=== PATIENT | female | born 1970 | race Caucasian/White ===

== ENCOUNTER 2018-11-06 11:46 | Inpatient (IN) | payer OTHER ==
[~2018-11-06] VITALS: Ht 167.6 cm; Wt 72.0 kg
[2018-11-06] MEDS ORDERED: normal saline 1000ML IV soln IV ONE (12:05)
[2018-11-06 12:38] LABS: BASOPHILS # (AUTO) 0.1 X10'3 (0-0.2); BASOPHILS % (AUTO) 1.9 % (0-1); EOSINOPHILS # (AUTO) 0.1 X10'3 (0-0.9); EOSINOPHILS % (AUTO) 2.8 % (0-6); HEMATOCRIT 26.2 % (35.0-45.0); HEMOGLOBIN 7.5 g/dl (12.0-16.0); LYMPHOCYTES # (AUTO) 0.9 X10'3 (1.1-4.8); LYMPHOCYTES % (AUTO) 16.2 % (21-51); MEAN CORPUSCULAR HEMOGLOBIN 21.5 PG (27.0-31.0); MEAN CORPUSCULAR HGB CONC 28.7 g/dL (33.0-36.5); MEAN CORPUSCULAR VOLUME 74.8 FL (78-98); MEAN PLATELET VOLUME 7.5 FL (7.4-10.4); MONOCYTES # (AUTO) 0.4 X10'3 (0-0.9); MONOCYTES % (AUTO) 6.9 % (2-12); NEUTROPHILS # (AUTO) 3.8 X10'3 (1.8-7.7); NEUTROPHILS % (AUTO) 72.2 % (42-75); PLATELET COUNT 359 X10'3 (140-440); RED CELL DISTRIBUTION WIDTH 22.6 % (11.5-14.5); WHITE BLOOD COUNT 5.3 X10'3 (4.5-11.0)
[2018-11-06 12:47] LABS: ALANINE AMINOTRANSFERASE 64 U/L (12-78); ALBUMIN 3.5 G/DL (3.4-5.0); ALBUMIN/GLOBULIN RATIO 0.7 (1.1-1.5); ALKALINE PHOSPHATASE 137 IU/L (46-116); ANION GAP 17 (8-16); ASPARTATE AMINO TRANSFERASE 100 U/L (10-37); BLOOD UREA NITROGEN 8 MG/DL (7-18); BUN/CREATININE RATIO 6.7 (6.6-38.0); CALCIUM 9.2 MG/DL (8.5-10.1); CHLORIDE 98 MMOL/L (99-107); GLUCOSE 117 MG/DL (70-104); POTASSIUM 3.3 MMOL/L (3.5-5.1); SODIUM 137 MMOL/L (135-145); TOTAL CARBON DIOXIDE 22.2 MMOL/L (24-32); TOTAL PROTEIN 8.7 G/DL (6.4-8.2); eGFR 48 ML/MIN
[2018-11-06 12:53] LABS: HYPOCHROMASIA 2+; PLATELET ESTIMATE NORMAL
[2018-11-06 12:54] LABS: ANISOCYTOSIS 3+; MICROCYTOSIS 1+; STOMATOCYTES 1+
[2018-11-06] MEDS ORDERED: ondansetron/PF 4mg/2ml inj IV ONE (13:00)
[2018-11-06] MEDS ORDERED: pantoprazole 40 MG vial IV ONE (13:00)
[2018-11-06] MEDS ORDERED: magnesium Cl slow-release 64mg tablet PO PRN (13:15)
[2018-11-06] MEDS ORDERED: potassium Cl 10 mEq/100mL bag IV ONE (13:15)
[2018-11-06] MEDS ORDERED: potassium Cl 40MEQ/NS 500ml 500 ML IV PRN (13:15)
[2018-11-06] MEDS ORDERED: potassium Cl 20 mEq SR tablet PO PRN ×2 (13:15)
[2018-11-06] MEDS ORDERED: magnesium 4gm in 100ml NS 100 ML IV PRN (13:15)
[2018-11-06] MEDS ORDERED: acetaminophen 325mg tablet PO PRN ×2 (13:15)
[2018-11-06] MEDS ORDERED: ondansetron/PF 4mg/2ml inj IV PRN (13:15)
[2018-11-06] MEDS ORDERED: mag hydrox/Alum hydrox/simeth 30ml oral suspension PO PRN (13:15)
[2018-11-06] MEDS ORDERED: magnesium hydroxide 30ml (MOM) UD suspension PO PRN (13:15)
[2018-11-06] MEDS ORDERED: magnesium 2GM in 50ml NS 50 ML IV PRN (13:15)
[2018-11-06] MEDS ORDERED: MVI, adult No.4 with vit. K 10 ML in dextrose 5% water 500ml 500 ML IV SCH ×2 (13:20)
[2018-11-06] MEDS ORDERED: LORazepam 1 MG tablet PO PRN (13:20)
[2018-11-06] MEDS ORDERED: LORazepam 2 mg/ml vial IV PRN (13:20)
[2018-11-06] MEDS ORDERED: NO HOME MEDS (13:31)
[2018-11-06] MEDS ORDERED: thiamine inj. 100 MG, folic acid inj. 2 MG in normal saline 100ml IV soln 100 ML IV SCH (13:35)
[2018-11-06] MEDS: normal saline 1000ml 1,000 ML IV SCH ×2 (13:44→23:12)
[2018-11-06] MEDS ORDERED: ESOMEPRAZOLE 40 MG VIAL IV ONE (13:45)
--- NOTE | 2018-11-06 14:30 | NUR ---
Received report from ER nurse Kaylie MITCHELL. Awaiting arrival to room 359B.
[2018-11-06 14:46] VITALS: BP 140/58
[2018-11-06 16:36] LABS: COLOR,URINE YELLOW (Yellow); GLUCOSE, URINE NEGATIVE (Neg); KETONES,URINE NEGATIVE (Neg); LEUKOCYTE ESTERASE ,URINE SMALL (Neg); NITRITES, URINE POSITIVE (Neg); OCCULT BLOOD,URINE NEGATIVE (Neg); PH,URINE 5.5 (4.8-8.0); PROTEIN,URINE NEGATIVE (Neg); UROBILINOGEN,URINE 0.2 E.U/dL (0.2-1.0)
[2018-11-06 16:47] LABS: CLARITY,URINE SLIGHTLY CLOUDY (Clear); UA COLLECTION TYPE CLN CATCH MIDSTREAM
[2018-11-06 16:52] LABS: BACTERIA,URINE 4+ /HPF (Neg); MUCUS STRANDS FEW /LPF (Neg); RBC,URINE NONE SEEN /HPF (0-2); SQUAMOUS EPITHELIAL CELL,UR FEW /LPF (FEW)
[2018-11-06 18:30] LABS: URINE AMPHETAMINE SCREEN POSITIVE (Neg); URINE BARBITUATE SCREEN NEGATIVE (Neg); URINE BENZODIAZEPINES SCREEN NEGATIVE (Neg); URINE CANNABINOID SCREEN NEGATIVE (Neg); URINE COCAINE SCREEN NEGATIVE (Neg); URINE METHADONE SCREEN NEGATIVE (Neg); URINE OPIATE SCREEN NEGATIVE (Neg); URINE PHENCYCLIDINE SCREEN NEGATIVE (Neg)
--- NOTE | 2018-11-06 18:32 | NUR ---
Problems reprioritized. Patient report given, questions answered & plan of care reviewed with Lisa MITCHELL.
--- NOTE | 2018-11-06 19:01 | NUR ---
Stool sample collected and sent to laboratory.
[2018-11-06 19:32] LABS: HEMATOCRIT 23.6 % (35.0-45.0); MEAN CORPUSCULAR HEMOGLOBIN 21.5 PG (27.0-31.0); MEAN CORPUSCULAR HGB CONC 28.7 g/dL (33.0-36.5); MEAN CORPUSCULAR VOLUME 74.8 FL (78-98); MEAN PLATELET VOLUME 7.7 FL (7.4-10.4); PLATELET COUNT 309 X10'3 (140-440); RED BLOOD COUNT 3.15 X10'6 (4.20-5.60); RED CELL DISTRIBUTION WIDTH 22.9 % (11.5-14.5); WHITE BLOOD COUNT 7.1 X10'3 (4.5-11.0)
[2018-11-06 19:37] LABS: HEMOGLOBIN 6.8 g/dl (12.0-16.0)
--- NOTE | 2018-11-06 19:50 | NUR ---
Critical hemoglobin of 6.8. Dr. Stone notified and made aware. No additional orders Patient is already type and screen.
[2018-11-06 19:55] LABS: % IRON SATURATION 4 % (11-46); IRON 15 UG/DL (49-151); TOTAL IRON BINDING CAPACITY 396 UG/DL (259-388)
[2018-11-06 20:00] VITALS: BP 143/87
[2018-11-06] MEDS: CefTRIAXone 2gm/D5W 50ml 50 ML IV SCH (20:09)
[2018-11-06] MEDS: lactobacillus rhamnosus 10,000 MMU CELLS/CAPSULE PO SCH (20:09)
[2018-11-06] MEDS: potassium CL 10mEq/100ml bag 100 ML IV PRN ×2 (21:38→22:53)
[2018-11-06 22:37] LABS: OCCULT BLOOD STOOL NEGATIVE (Neg)
[2018-11-07] VITALS (9 sets, daily range): BP systolic 121–158; BP diastolic 65–97
--- NOTE | 2018-11-07 00:12 | NUR ---
Dr. Stone notified of patient's low Iron studies. No additional orders. Updated patient's status to md. Patient is asympatomatic, VSS. No bleeding noted. Will continue with care.
[2018-11-07] MEDS: potassium CL 10mEq/100ml bag 100 ML IV PRN (00:43)
--- NOTE | 2018-11-07 05:17 | NUR ---
Dr. Stone in to see patient. Risks and Benefits explained to patient. Patient consented to receiving blood. MD order 1unit to be transfuse.
--- NOTE | 2018-11-07 05:45 | NUR ---
BLOOD TRANSFUSION STARTED. SYMPTOMS OF TRANSFUSION REACTIONS EXPLAINED TO PATIENT. LUNG SOUNDS CLEAR. VSS.
--- NOTE | 2018-11-07 06:30 | NUR ---
Patient in room [facility]. I have received report from Lisa MITCHELL and had the opportunity to ask questions and assume patient care.
[2018-11-07 06:31] LABS: BASOPHILS # (AUTO) 0.1 X10'3 (0-0.2); BASOPHILS % (AUTO) 1.5 % (0-1); EOSINOPHILS # (AUTO) 0.2 X10'3 (0-0.9); EOSINOPHILS % (AUTO) 3.4 % (0-6); LYMPHOCYTES # (AUTO) 1.3 X10'3 (1.1-4.8); LYMPHOCYTES % (AUTO) 21.5 % (21-51); MEAN CORPUSCULAR HEMOGLOBIN 21.5 PG (27.0-31.0); MEAN CORPUSCULAR HGB CONC 29.2 g/dL (33.0-36.5); MEAN CORPUSCULAR VOLUME 73.8 FL (78-98); MEAN PLATELET VOLUME 7.6 FL (7.4-10.4); MONOCYTES # (AUTO) 0.6 X10'3 (0-0.9); MONOCYTES % (AUTO) 9.9 % (2-12); NEUTROPHILS # (AUTO) 3.9 X10'3 (1.8-7.7); NEUTROPHILS % (AUTO) 63.7 % (42-75); PLATELET COUNT 286 X10'3 (140-440); RED CELL DISTRIBUTION WIDTH 22.7 % (11.5-14.5); WHITE BLOOD COUNT 6.1 X10'3 (4.5-11.0)
[2018-11-07 06:39] LABS: ANION GAP 10 (8-16); BLOOD UREA NITROGEN 6 MG/DL (7-18); CALCIUM 8.1 MG/DL (8.5-10.1); CHLORIDE 103 MMOL/L (99-107); GLUCOSE 84 MG/DL (70-104); POTASSIUM 3.6 MMOL/L (3.5-5.1); SODIUM 138 MMOL/L (135-145); TOTAL CARBON DIOXIDE 24.8 MMOL/L (24-32); eGFR > 90 ML/MIN
[2018-11-07 06:40] LABS: ALBUMIN 2.6 G/DL (3.4-5.0); MAGNESIUM 1.5 MG/DL (1.5-2.4)
[2018-11-07 06:41] LABS: HEMATOCRIT 20.6 % (35.0-45.0)
[2018-11-07 07:48] LABS: ANISOCYTOSIS 3+; LARGE PLATELETS FEW; MICROCYTOSIS 1+; PLATELET ESTIMATE NORMAL
[2018-11-07 07:49] LABS: HYPOCHROMASIA 2+; POLYCHROMASIA 1+
[2018-11-07] MEDS: K and/or MAG REPLACEMENT MC SCH (08:00)
[2018-11-07] MEDS: lactobacillus rhamnosus 10,000 MMU CELLS/CAPSULE PO SCH ×2 (08:19→19:33)
[2018-11-07] MEDS: CefTRIAXone 2gm/D5W 50ml 50 ML IV SCH (08:19)
[2018-11-07] MEDS: thiamine 100mg tablet PO SCH (08:19)
[2018-11-07] MEDS: pantoprazole 40mg Tablet.DR PO SCH (08:19)
[2018-11-07] MEDS: multivitamins, therapeutics tablet PO SCH (08:20)
[2018-11-07] MEDS: folic acid 1mg tablet PO SCH (08:20)
[2018-11-07] MEDS: normal saline 1000ml 1,000 ML IV SCH (09:19)
[2018-11-07 12:16] LABS: HEMATOCRIT 25.5 % (35.0-45.0); HEMOGLOBIN 7.7 g/dl (12.0-16.0); MEAN CORPUSCULAR HGB CONC 30.1 g/dL (33.0-36.5); MEAN CORPUSCULAR VOLUME 76.4 FL (78-98); MEAN PLATELET VOLUME 7.9 FL (7.4-10.4); PLATELET COUNT 288 X10'3 (140-440); RED BLOOD COUNT 3.34 X10'6 (4.20-5.60); RED CELL DISTRIBUTION WIDTH 21.5 % (11.5-14.5); WHITE BLOOD COUNT 5.9 X10'3 (4.5-11.0)
--- NOTE | 2018-11-07 12:54 | NUR ---
informed of H&H 7.11/23.. No new orders at this time.
[2018-11-07] MEDS: sodium ferric gluc complex inj 125 MG in normal saline 100ml IV soln 100 ML IV SCH (18:08)
--- NOTE | 2018-11-07 18:15 | NUR ---
Problems reprioritized. Patient report given, questions answered & plan of care reviewed with Deneen Winn RN.
[2018-11-08] VITALS: BP 137/75
[2018-11-08 05:03] LABS: BASOPHILS # (AUTO) 0.1 X10'3 (0-0.2); EOSINOPHILS # (AUTO) 0.2 X10'3 (0-0.9); EOSINOPHILS % (AUTO) 2.7 % (0-6); HEMATOCRIT 25.4 % (35.0-45.0); HEMOGLOBIN 7.6 g/dl (12.0-16.0); LYMPHOCYTES # (AUTO) 1.1 X10'3 (1.1-4.8); MEAN CORPUSCULAR HEMOGLOBIN 22.5 PG (27.0-31.0); MEAN CORPUSCULAR HGB CONC 29.8 g/dL (33.0-36.5); MEAN CORPUSCULAR VOLUME 75.6 FL (78-98); MEAN PLATELET VOLUME 7.5 FL (7.4-10.4); MONOCYTES # (AUTO) 0.7 X10'3 (0-0.9); MONOCYTES % (AUTO) 8.8 % (2-12); NEUTROPHILS # (AUTO) 5.6 X10'3 (1.8-7.7); NEUTROPHILS % (AUTO) 72.5 % (42-75); PLATELET COUNT 304 X10'3 (140-440); RED BLOOD COUNT 3.36 X10'6 (4.20-5.60); WHITE BLOOD COUNT 7.7 X10'3 (4.5-11.0)
[2018-11-08 05:31] LABS: ALBUMIN 2.7 G/DL (3.4-5.0); ANION GAP 10 (8-16); BLOOD UREA NITROGEN 4 MG/DL (7-18); BUN/CREATININE RATIO 6.8 (6.6-38.0); CHLORIDE 102 MMOL/L (99-107); CREATININE 0.59 MG/DL (0.40-0.90); GLUCOSE 95 MG/DL (70-104); MAGNESIUM 1.6 MG/DL (1.5-2.4); POTASSIUM 3.6 MMOL/L (3.5-5.1); SODIUM 138 MMOL/L (135-145); TOTAL CARBON DIOXIDE 25.8 MMOL/L (24-32); eGFR > 90 ML/MIN
--- NOTE | 2018-11-08 06:14 | NUR ---
Problems reprioritized. Patient report given, questions answered & plan of care reviewed with PAULA Lucas.
--- NOTE | 2018-11-08 06:15 | NUR ---
Patient in room [facility]. I have received report from PAULA Brothers and had the opportunity to ask questions and assume patient care.
[2018-11-08 07:00] VITALS: BP 149/86
[2018-11-08 07:10] LABS: ANISOCYTOSIS 3+; ELLIPTOCYTES FEW; HYPOCHROMASIA 2+; MICROCYTOSIS 1+; PLATELET ESTIMATE NORMAL; POLYCHROMASIA FEW; STOMATOCYTES 1+
[2018-11-08] MEDS: K and/or MAG REPLACEMENT MC SCH (08:00)
[2018-11-08] MEDS: sodium ferric gluc complex inj 125 MG in normal saline 100ml IV soln 100 ML IV SCH (08:01)
[2018-11-08] MEDS: CefTRIAXone 2gm/D5W 50ml 50 ML IV SCH (08:05)
[2018-11-08] MEDS: multivitamins, therapeutics tablet PO SCH (08:09)
[2018-11-08] MEDS: pantoprazole 40mg Tablet.DR PO SCH (08:09)
[2018-11-08] MEDS: lactobacillus rhamnosus 10,000 MMU CELLS/CAPSULE PO SCH ×2 (08:09→20:13)
[2018-11-08] MEDS: thiamine 100mg tablet PO SCH (08:09)
[2018-11-08] MEDS: folic acid 1mg tablet PO SCH (08:09)
[2018-11-08 11:55] VITALS: BP 155/92
--- NOTE | 2018-11-08 16:30 | NUR ---
Nutrition consult: Iron rich diet education. Pt seen at bedside provided with written and verbal iron deficiency nutrition therapy education as well as list of iron content in foods. Pt reports she takes an iron supplement at home however she often forgets to take it. All of patient's questions were answered at this time. RD contact information provided. Will continue to follow. Addendum: 11/08/18 at [address] Amended: Links added.
[2018-11-08] MEDS: ascorbic acid 500mg tablet PO SCH (17:02)
--- NOTE | 2018-11-08 18:27 | NUR ---
Problems reprioritized. Patient report given, questions answered & plan of care reviewed with PAULA Camara.
[2018-11-08 20:00] VITALS: BP 147/82
[2018-11-08 23:50] VITALS: BP 152/89
[2018-11-09 06:02] LABS: BASOPHILS # (AUTO) 0.1 X10'3 (0-0.2); BASOPHILS % (AUTO) 0.9 % (0-1); EOSINOPHILS # (AUTO) 0.3 X10'3 (0-0.9); EOSINOPHILS % (AUTO) 2.7 % (0-6); HEMATOCRIT 26.6 % (35.0-45.0); LYMPHOCYTES # (AUTO) 1.2 X10'3 (1.1-4.8); LYMPHOCYTES % (AUTO) 11.3 % (21-51); MEAN CORPUSCULAR HEMOGLOBIN 22.9 PG (27.0-31.0); MEAN CORPUSCULAR HGB CONC 30.3 g/dL (33.0-36.5); MEAN CORPUSCULAR VOLUME 75.7 FL (78-98); MONOCYTES # (AUTO) 0.6 X10'3 (0-0.9); MONOCYTES % (AUTO) 5.7 % (2-12); NEUTROPHILS # (AUTO) 8.7 X10'3 (1.8-7.7); NEUTROPHILS % (AUTO) 79.4 % (42-75); PLATELET COUNT 323 X10'3 (140-440); RED BLOOD COUNT 3.51 X10'6 (4.20-5.60); RED CELL DISTRIBUTION WIDTH 22.7 % (11.5-14.5)
[2018-11-09 06:16] LABS: ALBUMIN 2.6 G/DL (3.4-5.0); ANION GAP 9 (8-16); BLOOD UREA NITROGEN 6 MG/DL (7-18); BUN/CREATININE RATIO 10.5 (6.6-38.0); CALCIUM 9.2 MG/DL (8.5-10.1); CHLORIDE 101 MMOL/L (99-107); CREATININE 0.57 MG/DL (0.40-0.90); GLUCOSE 123 MG/DL (70-104); MAGNESIUM 1.5 MG/DL (1.5-2.4); POTASSIUM 3.5 MMOL/L (3.5-5.1); SODIUM 138 MMOL/L (135-145); TOTAL CARBON DIOXIDE 27.7 MMOL/L (24-32); eGFR > 90 ML/MIN
--- NOTE | 2018-11-09 06:30 | NUR ---
Patient in room [facility]. I have received report from PAULA Camara and had the opportunity to ask questions and assume patient care.
[2018-11-09 08:00] VITALS: BP 147/90
[2018-11-09] MEDS: folic acid 1mg tablet PO SCH (08:03)
[2018-11-09] MEDS: lactobacillus rhamnosus 10,000 MMU CELLS/CAPSULE PO SCH (08:03)
[2018-11-09] MEDS: multivitamins, therapeutics tablet PO SCH (08:04)
[2018-11-09] MEDS: ascorbic acid 500mg tablet PO SCH (08:04)
[2018-11-09] MEDS: pantoprazole 40mg Tablet.DR PO SCH (08:04)
[2018-11-09] MEDS: thiamine 100mg tablet PO SCH (08:04)
[2018-11-09] MEDS: CefTRIAXone 2gm/D5W 50ml 50 ML IV SCH (08:10)
[2018-11-09 08:12] LABS: ANISOCYTOSIS 3+; HYPOCHROMASIA 1+; MICROCYTOSIS 1+; PLATELET ESTIMATE NORMAL; POLYCHROMASIA 1+; STOMATOCYTES 1+; TARGET CELLS FEW
[2018-11-09] MEDS: K and/or MAG REPLACEMENT MC SCH (08:17)
[2018-11-09] MEDS: sodium ferric gluc complex inj 125 MG in normal saline 100ml IV soln 100 ML IV SCH (08:57)
[2018-11-09] MEDS ORDERED: VITC500T PO (10:55)
[2018-11-09] MEDS ORDERED: FERR325T28 PO (10:56)
[2018-11-09] MEDS ORDERED: MULT-1179 PO (10:56)
[2018-11-09] MEDS ORDERED: FOLI1TAB16 PO (10:56)
[2018-11-09] MEDS ORDERED: thiamine tablet PO (10:56)
[2018-11-09] MEDS ORDERED: CEFD300C3 PO (10:56)
[2018-11-09 11:00] VITALS: BP 118/74
--- NOTE | 2018-11-09 12:14 | NUR ---
reviewed discharge instructions and new Rx with pt. Pt verbalized understanding. IV removed. Abx Rx to be given to pt at bedside via [facility]. Pt to obtain other vitamins OTC at her preferred pharmacy of choice.
[2018-11-13 14:45] LABS: OCCULT BLOOD STOOL NEGATIVE (Neg)
== END 2018-11-09 12:45 | disposition home or self-care (01) | DRG 812 ==
LOC: ER 11:47 → SUR 3N 14:12 → CMPBEDREQ 19:48
PROVIDERS: ADMIT Hospitalist; ATTEND Hospitalist
PROC: 30233N1 Transfusion of Nonautologous Red Blood Cells into Peripheral Vein, Percutaneous Approach (ICD-10-PCS; principal; 2018-11-07)
DX: D50.9 Iron deficiency anemia, unspecified (principal); E87.2 Acidosis; F10.29 Alcohol dependence with unspecified alcohol-induced disorder; N17.9 Acute kidney failure, unspecified; N39.0 Urinary tract infection, site not specified; E86.0 Dehydration; E87.6 Hypokalemia; I95.1 Orthostatic hypotension; K70.30 Alcoholic cirrhosis of liver without ascites; R74.8 Abnormal levels of other serum enzymes
CPT/HCPCS: 36415; 71045; 80048; 80053; 80305; 81001; 82272; 82948; 83540; 83550; 83735; 85025; 85027; 85610; 86885; 86900; 86901; 86920; 87077; 87081; 87088; 87186; 93005; 96365; 96375; 99285; G0378; J0696; J2405; J2916; J3411; J3480; J3490; J7030; J7060; P9016

== ENCOUNTER 2018-12-11 14:50 | Emergency (ER) | payer SELFPAY ==
[~2018-12-11] VITALS: Ht 167.6 cm; Wt 70.5 kg
[~2018-12-11 14:50] MED LIST: FOLI1TAB16 PO; MULT-1179 PO; VITC500T PO; thiamine tablet PO
[2018-12-11 14:54] VITALS: BP 133/90
[2018-12-11 15:47] LABS: ALBUMIN 3.2 G/DL (3.4-5.0); ANION GAP 11 (8-16); BLOOD UREA NITROGEN 5 MG/DL (7-18); BUN/CREATININE RATIO 8.8 (6.6-38.0); CALCIUM 8.6 MG/DL (8.5-10.1); CHLORIDE 102 MMOL/L (99-107); CREATININE 0.57 MG/DL (0.40-0.90); GLUCOSE 124 MG/DL (70-104); POTASSIUM 3.2 MMOL/L (3.5-5.1); SODIUM 139 MMOL/L (135-145); TOTAL CARBON DIOXIDE 25.8 MMOL/L (24-32); eGFR > 90 ML/MIN
[2018-12-11 15:54] LABS: BASOPHILS % (AUTO) 0.7 % (0-1); EOSINOPHILS # (AUTO) 0.2 X10'3 (0-0.9); EOSINOPHILS % (AUTO) 4.4 % (0-6); HEMATOCRIT 30.1 % (35.0-45.0); HEMOGLOBIN 9.4 g/dl (12.0-16.0); LYMPHOCYTES % (AUTO) 22.5 % (21-51); MEAN CORPUSCULAR HEMOGLOBIN 25.1 PG (27.0-31.0); MEAN CORPUSCULAR HGB CONC 31.1 g/dL (33.0-36.5); MEAN CORPUSCULAR VOLUME 80.6 FL (78-98); MEAN PLATELET VOLUME 7.8 FL (7.4-10.4); MONOCYTES # (AUTO) 0.5 X10'3 (0-0.9); MONOCYTES % (AUTO) 10.4 % (2-12); NEUTROPHILS # (AUTO) 2.7 X10'3 (1.8-7.7); PLATELET COUNT 181 X10'3 (140-440); RED BLOOD COUNT 3.73 X10'6 (4.20-5.60); RED CELL DISTRIBUTION WIDTH 20.9 % (11.5-14.5); WHITE BLOOD COUNT 4.4 X10'3 (4.5-11.0)
[2018-12-11 17:09] LABS: ANISOCYTOSIS 3+; HYPOCHROMASIA 1+; POLYCHROMASIA FEW; STOMATOCYTES 1+
[2018-12-11 17:10] LABS: PLATELET ESTIMATE NORMAL
== END 2018-12-11 16:19 | disposition home or self-care (01) ==
LOC: ER 14:51
DX: N93.8 Other specified abnormal uterine and vaginal bleeding (principal); K64.4 Residual hemorrhoidal skin tags; I10 Essential (primary) hypertension; Z79.2 Long term (current) use of antibiotics; Z98.890 Other specified postprocedural states; Z79.899 Other long term (current) drug therapy
CPT/HCPCS: 36415; 80048; 85025; 99283

== ENCOUNTER 2019-12-10 00:03 | Emergency (ER) | payer MEDICAID ==
[~2019-12-10] VITALS: Ht 167.6 cm; Wt 63.6 kg
[~2019-12-10 00:03] MED LIST changes: -MULT-1179 PO; +MULT-25 PO
[2019-12-10 00:04] VITALS: BP 137/85
== END 2019-12-10 02:44 | disposition home or self-care (01) ==
LOC: ER 00:04
DX: S00.03XA Contusion of scalp, initial encounter (principal); I10 Essential (primary) hypertension; Z98.890 Other specified postprocedural states; Z79.899 Other long term (current) drug therapy; V69.9XXA Occupant (driver) (passenger) of heavy transport vehicle injured in unspecified traffic accident, initial encounter; Y93.89 Activity, other specified; Y92.410 Unspecified street and highway as the place of occurrence of the external cause; Y99.8 Other external cause status
CPT/HCPCS: 70450; 72125; 99285